=== PATIENT | female | born 1980 | race African-American/Black ===

== ENCOUNTER 2016-06-03 22:53 | Emergency (ER) | payer OTHER ==
[~2016-06-03] VITALS: Ht 167.6 cm; Wt 56.7 kg
[~2016-06-03 22:53] MED LIST: AMOXICILLIN500 M3 PO; AMOXICILLIN875 M1 PO; AUGMENTIN 875-1 EACH PO; FERROUS SULFAT324 MG PO; IBUPROFEN800 M1 PO; IBUPROFEN800 MG PO; MOBIC15 M1 PO; PERCOCET 325 MG1 TA2 PO; PERCOCET 5-3251 EACH PO; SKELAXIN800 M1 PO; TRAMADOL HCL50 M1 PO; ULTRAM50 M1 PO; VICODIN 5-3001 EACH PO
[2016-06-03 22:56] VITALS: BP 122/81
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
[2016-06-04] MEDS ORDERED: AUGMENTIN 875-1 EACH PO (00:07)
[2016-06-04] MEDS ORDERED: TYLENOL WITH C1 EACH PO (00:07)
== END 2016-06-04 00:18 ==
LOC: ERH 22:53
DX: K08.89 Other specified disorders of teeth and supporting structures (principal)

== ENCOUNTER 2017-08-14 17:15 | Emergency (ER) | payer OTHER ==
[~2017-08-14] VITALS: Ht 160 cm; Wt 52.2 kg
[~2017-08-14 17:15] MED LIST changes: +PROVERA10 MG PO; +TYLENOL WITH C1 EACH PO
[2017-08-14 20:51] VITALS: BP 121/67
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
[2017-08-14] MEDS ORDERED: ROBAXIN-750750 M1 PO (21:12)
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
[2017-08-14] MEDS ORDERED: PERCOCET 5-3251 EACH PO (21:13)
== END 2017-08-14 21:22 ==
LOC: ERH 17:15
DX: R51 Headache (principal)
CPT/HCPCS: 81025

== ENCOUNTER 2017-08-26 15:58 | Emergency (ER) | payer OTHER ==
[~2017-08-26] VITALS: Ht 160 cm; Wt 52.2 kg
[~2017-08-26 15:58] MED LIST changes: +ROBAXIN-750750 M1 PO
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
[2017-08-26] MEDS ORDERED: CYCLOBENZAPRINE10 M1 PO (18:07)
[2017-08-26] MEDS ORDERED: PERCOCET 5-3251 EACH PO (18:07)
[2017-08-26 18:13] VITALS: BP 112/70
== END 2017-08-26 18:13 ==
LOC: ERH 15:58
DX: S16.1XXA Strain of muscle, fascia and tendon at neck level, initial encounter (principal); V47.5XXA Car driver injured in collision with fixed or stationary object in traffic accident, initial encounter; Y92.410 Unspecified street and highway as the place of occurrence of the external cause

== ENCOUNTER 2017-12-02 10:47 | Emergency (ER) | payer OTHER ==
[~2017-12-02] VITALS: Ht 160 cm; Wt 52.2 kg
[~2017-12-02 10:47] MED LIST changes: +CYCLOBENZAPRINE10 M1 PO
[2017-12-02 10:51] VITALS: BP 111/67
[2017-12-02] MEDS ORDERED: BUTALB-ACETAMI1 EACH PO (11:05)
--- NOTE | 2017-12-02 11:06 | ED HEAD/FACIAL INJ COMPLAINT ---
History of Present Illness General Chief Complaint: Facial or Head Injury Stated Complaint: HIT IN HEAD AT WORK YESTERDAY Source: patient Exam Limitations: no limitations Vital Signs & Intake/Output Vital Signs & Intake/Output Vital Signs Date Time Temp Pulse Resp B/P B/P Pulse O2 O2 Flow FiO2 Mean Ox Delivery Rate 12/02 1051 98.0 90 20 111/67 100 Room Air Allergies Coded Allergies: latex (Intermediate, HIVES 08/14/17) Reconcile Medications Butalb/Acetaminophen/Caffeine (Grdlfx-Ucbophpt-Akbp 50-325-40) 50 MG-325 MG-40 MG TABLET 1-2 TAB PO DAILY HEADACHE Cyclobenzaprine HCl 10 MG TABLET 1 TAB PO TID PRN PAIN Medroxyprogesterone Acetate (Provera) 10 MG TABLET 1 TAB PO DAILY ABNORMAL BLEEDING Methocarbamol (Robaxin-750) 750 MG TABLET 1 TAB PO TID PRN PAIN Oxycodone HCl/Acetaminophen (Percocet 5-325 MG Tablet) 5 MG-325 MG TABLET 1 TAB PO 4 TIMES/DAY PRN SEVERE PAIN Triage Note: PT TO ED C/O HEADACHE, DIZZINESS SINCE YESTERDAY. PT WAS AT WORK YESTERDAY AND WAS HIT IN THE HEAD BY A DOOR OF A MACHINE. DENIED LOC. WAS SENT HOME TO REST YESTERDAY. WENT BACK TO WORK TODAY AND STATES HEADACHE AND PRESSURE IS WORSE. DENIES N/V. Triage Nurses Notes Reviewed? yes Onset: Abrupt Location: frontal Method of Injury: unknown Loss of Consciousness: no loss of consciousness : No Patient currently breastfeeds: No HPI: 37-year-old female comes into the emergency room for further evaluation of head injury that occurred at work yesterday. Patient reports she was walking at work and someone opened a door on one of the machines in the dorsal open and hit her on her left frontal aspect of her head. No loss of consciousness. No vomiting. She is experiencing headache and some lightheadedness at times. Denies any vision loss. She comes in for further evaluation today. Denies any anticoagulants. Denies any neck pain or injury anywhere else. (Rigo Diaz) Past History Travel History Traveled to [place] past 21 day No Medical History Any Pertinent Medical History? 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 No (Rigo Diaz) Review of Systems Review of Systems Constitutional: Reports: no symptoms. EENTM: Reports: no symptoms. Respiratory: Reports: no symptoms. Cardiovascular: Reports: no symptoms. GI: Reports: no symptoms. Genitourinary: Reports: no symptoms. Musculoskeletal: Reports: no symptoms. Skin: Reports: no symptoms. Neurological/Psychological: Reports: see HPI. Hematologic/Endocrine: Reports: no symptoms. Immunologic/Allergic: Reports: no symptoms. All Other Systems: Reviewed and Negative (Rigo Diaz) Physical Exam Physical Exam General Appearance: well developed/nourished, mild distress Head: atraumatic, normal appearance Eyes: Bilateral: normal appearance, PERRL, EOMI. Ears, Nose, Throat: normal ENT inspection, hearing grossly normal Neck: normal inspection, supple Respiratory: normal breath sounds, no respiratory distress Cardiovascular: regular rate/rhythm Back: normal inspection Extremities: normal inspection, normal range of motion, no edema Psychiatric: awake, alert, oriented x 3 Cranial Nerves: normal hearing, normal speech, PERRL Coordination/Gait: normal gait Motor/Sensory: no motor/sensory deficits Skin: intact, normal color, warm/dry (Rigo Diaz) Progress Differential Diagnosis: c-spine injury, facial fracture, globe injury, ICH, orbit fracture, skull fracture, concussion Plan of Care: 12/02/2017 12:33:32 PM Symptoms are most consistent with concussion. Do not feel CT scan is [place] at this time. Negative Clever ct head. It was offered to patient but she agrees with my plan of care. (Rigo Diaz) Departure Departure Disposition: HOME OR SELF CARE Condition: Stable Clinical Impression Primary Impression: Concussion Referrals: Unknown (PCP/Family) Additional Instructions: Take Fioricet as prescribed. Follow-up with PCP. Return if any concerns or worsening symptoms. Please go over all results of today's visit with your primary care doctor. Contact your primary care doctor to let them know you were here in the emergency room. There may be nonspecific findings which may not be related to your visit today here in the emergency room but may require further evaluation and chronic monitoring by your primary care doctor. If you had a laceration today the chance of foreign body always remains. You should follow-up with your primary care doctor for recheck in 3-5 days for a wound check. If you had an x-ray done there is a chance that a fracture could have been missed on initial read and you should follow-up with your primary care doctor for repeat x-rays if symptoms persist. If your blood pressure was elevated here in the emergency room please have rechecked by [facility] primary care doctor within the next 48. If you were prescribed a narcotic here in the emergency room or any type of controlled substances you're not allowed to drive while taking this medication or operate any type of heavy machinery. Narcotics can make you feel lightheaded dizziness nausea and can cause constipation. You may need to peanut picker a stool softener. Thank you for choosing [facility] emergency room. Please return to the emergency room immediately if you have any other concerns worsening of symptoms. Departure Forms: Customer Survey General Discharge Information Industrial Accident Report Prescriptions: Current Visit Scripts Butalb/Acetaminophen/Caffeine (Mdywng-Eetxjkoj-Hcuq 50-325-40) 1-2 TAB PO DAILY #20 TAB (Rigo Diaz) PA/CUSTOMS CONSULTANT Co-Sign Statement Statement: ED Attending supervision documentation- [] I saw and evaluated the patient. I have also reviewed all the pertinent lab results and diagnostic results. I agree with the findings and the plan of care as documented in the PA's/CUSTOMS CONSULTANT's documentation. [X] I have reviewed the ED Record and agree with the PA's/CUSTOMS CONSULTANT's documentation. [] Additions or exceptions (if any) to the PAs/CUSTOMS CONSULTANT's note and plan are summarized below: [] (Gilmer LALA,Chirag Hunt)
== END 2017-12-02 11:35 ==
LOC: ERH 10:47
DX: S06.0X0A Concussion without loss of consciousness, initial encounter (principal); W22.8XXA Striking against or struck by other objects, initial encounter; Y92.89 Other specified places as the place of occurrence of the external cause; Y93.89 Activity, other specified; R51 Headache; D64.9 Anemia, unspecified; F17.210 Nicotine dependence, cigarettes, uncomplicated